=== PATIENT | female | born 1960 | race Caucasian/White ===

== ENCOUNTER 2024-12-06 08:05 | Inpatient (IN) | payer MEDICARE ==
[2024-12-06 08:20] LABS: Glucose,Whole Blood 433 mg/dL (70-110)
--- NOTE | 2024-12-06 08:29 | ED ---
Nausea/Vomiting/Diarrhea HPI - General Chief complaint: Nausea/Vomiting/Diarrhea Stated complaint: nausea, vomiting Time Seen by Provider: 12/06/24 08:13 Source: patient, EMS, RN notes reviewed Mode of arrival: EMS Limitations: no limitations - History of Present Illness Initial comments: With a history of type 2 diabetes mellitus on metformin presenting symptoms department via EMS for complaint of intermittent nausea and vomiting over the past 3 weeks. She denies hematemesis, coffee-ground emesis, melena, hematochezia, dyspnea, chest pain, heart palpitations, dizziness or lightheadedness. States over the past few weeks she is also been experiencing chills, cough, rhinorrhea and congestion. Surgical history of cholecystectomy, hysterectomy, appendectomy, and cyst removal from large colon. Patient states that her blood sugar is normally well-controlled ranging in the 140s maintained with oral metformin. - Related Data Home Medications Medication Instructions Recorded Confirmed Citalopram Hydrobromide [CeleXA] 40 mg PO HS 12/06/24 12/06/24 Gabapentin [Neurontin] 300 mg PO BID 12/06/24 12/06/24 Ketoconazole 2% Cream [Nizoral 2%] 1 applic TOPICAL TID 12/06/24 12/06/24 metFORMIN HCL 1,000 mg PO BID 12/06/24 12/06/24 Allergies Allergy/AdvReac Type Severity Reaction Status Date / Time cephalexin [From Keflex] Allergy Unknown Verified 12/06/24 11:05 Childhood Review of Systems ROS Statement: Those systems with pertinent positive or pertinent negative responses have been documented in the HPI. ROS Other: All systems not noted in ROS Statement are negative. 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 Absent: scleral icterus, conjunctival injection, periorbital swelling Neck exam: Present: normal inspection. Absent: tenderness, meningismus, lymphadenopathy Respiratory exam: Present: normal lung sounds bilaterally. Absent: respiratory distress, wheezes, rales, rhonchi, stridor Cardiovascular Exam: Present: regular rate, normal rhythm, normal heart sounds. Absent: systolic murmur, diastolic murmur, rubs, gallop, clicks GI/Abdominal exam: Present: soft, tenderness (LUQ), normal bowel sounds. Absent: distended, guarding, rebound, rigid Extremities exam: Present: normal inspection, full ROM, normal capillary refill. Absent: tenderness, pedal edema, joint swelling, calf tenderness Back exam: Present: normal inspection Skin exam: Present: warm, dry, pallor. Absent: rash Course Vital Signs 12/06/24 08:07 Temperature 98.7 F Pulse Rate 91 Respiratory 18 Rate Blood Pressure 136/71 O2 Sat by Pulse 97 Oximetry Medical Decision Making - Medical Decision Making Was pt. sent in by a medical professional or institution (, MAN, LEGAL TECHNICIAN, urgent care, hospital, or assisted...) When possible be specific @ -No Did you speak to anyone other than the patient for history (EMS, parent, family, police, friend...)? What history was obtained from this source @ -No Did you review nursing and triage notes (agree or disagree)? Why? @ -I reviewed and agree with nursing and triage notes Were old charts reviewed (outside hosp., previous admission, EMS record, old EKG, old radiological studies, urgent care reports/EKG's, assisted records)? Report findings @ -No old charts were reviewed Differential Diagnosis (chest pain, altered mental status, abdominal pain women, abdominal pain men, vaginal bleeding, weakness, fever, dyspnea, syncope, headache, dizziness, GI bleed, back pain, seizure, CVA, palpatations, mental health, musculoskeletal)? @ -Differential Abdominal Pain Women: Appendicitis, Cholecystitis, diverticulosis, ischemic bowel, pancreatitis, hepatitis, UTI, gastroenteritis, AAA, incarcerated hernia, bowel obstruction, constipation, inflammatory bowel, hepatitis, peptic ulcer disease, splenic infarction, perforated viscus, vulvitis, ovarian torsion, PID, kidney stone, placenta abruption, this is not meant to be an all-inclusive list EKG interpreted by me (3pts min.). @ -None X-rays interpreted by me (1pt min.). @ -None done CT interpreted by me (1pt min.). @ -CT of the abdomen pelvis with IV contrast mild fat stranding and small fluid on the distal body and tail of the pancreas with no ductal dilation noted. U/S interpreted by me (1pt. min.). @ -None done What testing was considered but not performed or refused? (CT, X-rays, U/S, labs)? Why? @ -None What meds were considered but not given or refused? Why? @ -None Did you discuss the management of the patient with other professionals (professionals i.e. , PA, LEGAL TECHNICIAN, lab, RT, psych nurse, social services manager, cylinder inspector and tester, teacher, field artillery officer, manager of case management)? Give summary @ -I spoke with on-call nurse George ramirez with [facility], who has agreed for admission with anemia. recommend transfusion which has been imitated at time of admission. Was smoking cessation discussed for >3mins.? @ -No Was critical care preformed (if so, how long)? @ -No Were there social determinants of health that impacted care today? How? (Homelessness, low income, unemployed, alcoholism, drug addiction, transport ation, low edu. Level, literacy, decrease access to med. care, [facility], rehab)? @ -No Was there de-escalation of care discussed even if they declined (Discuss DNR or withdrawal of care, Hospice)? DNR status @ -No What co-morbidities impacted this encounter? (DM, HTN, Smoking, COPD, CAD, Cancer, CVA, ARF, Chemo, Hep., AIDS, mental health diagnosis, sleep apnea, morbid obesity)? @ -None Was patient admitted / discharged? Hospital course, mention meds given and route, prescriptions, significant lab abnormalities, going to OR and other pertinent info. @ -Admitted. 63-year-old male presenting with intermittent nausea and vomiting over the past 3 weeks. Physical examination for 2-year-old male with left upper quadrant tenderness to palpation with no palpable masses. Vitals are stable. She is patient is provided with IV fluids and antiemetics pending laboratory workup. Labs are remarkable for a critically low hemoglobin of 6.9, hematocrit of 20.6 in addition to 2% blast cells 0.5 lymphocytes. Patient is hyperglycemic with a glucose of 374 and hyponatremia likely secondary to hyperglycemia. Patient is COVID-positive. Acetone negative. Patient is admitted to internal medicine and given red cells with oncology on consult for evaluation of anemia and elevated blast cells. Additionally, on reevaluation of left side abdominal pain CT of the abdomen is ordered which is notable for mild fat stranding and small fluid in the distal body and tail of the pancreas with no ductal dilation noted. Minimal concern for acute pancreatitis this patient pancreatic enzymes are within normal limits. Urinalysis positive for ketones and glucose. Patient is not acidotic. She will be continued on fluids in the admitted to internal medicine. Undiagnosed new problem with uncertain prognosis? @ -No Drug Therapy requiring intensive monitoring for toxicity (Heparin, Nitro, I nsulin, Cardizem)? @ -No Were any procedures done? @ -No Diagnosis/symptom? @ -anemia, hyperglycemia, blast cells, nausea and vomiting Acute, or Chronic, or Acute on Chronic? @ -acute Uncomplicated (without systemic symptoms) or Complicated (systemic symptoms)? @ -complicated Side effects of treatment? @ -No Exacerbation, Progression, or Severe Exacerbation? @ -No Poses a threat to life or bodily function? How? (Chest pain, [place], [place], pneumonia, PE, COPD, DKA, ARF, appy, cholecystitis, CVA, Diverticulitis, Homicidal, Suicidal, threat to staff... and all critical care pts) @ -No - Lab Data Result diagrams: 12/06/24 10:34 12/06/24 08:28 Lab Results 12/06/24 12/06/24 12/06/24 Range/Units 08:18 08:28 08:28 WBC 4.9 (3.8-10.6) k/uL RBC 2.03 L (3.80-5.40) m/uL Hgb 6.9 L* (11.4-16.0) gm/dL Hct 20.6 L (34.0-46.0) % MCV 101.6 H (80.0-100.0) fL MCH 33.9 (25.0-35.0) pg MCHC 33.4 (31.0-37.0) g/dL RDW 23.5 H (11.5-15.5) % Plt Count 115 L (150-450) k/uL MPV 12.3 Neutrophils % (Manual) 76 % Band Neuts % (Manual) 1 % Lymphocytes % (Manual) 12 % Monocytes % (Manual) 8 % Eosinophils % (Manual) 1 % Metamyelocytes % 1 % Myelocytes % 1 % Blast Cells % 2 H* % Neutrophils # (Manual) 3.70 (1.3-7.7) k/uL Lymphocytes # (Manual) 0.59 L (1.0-4.8) k/uL Monocytes # (Manual) 0.39 (0-1.0) k/uL Eosinophils # (Manual) 0.05 (0-0.7) k/uL Metamyelocytes # (Man) 0.05 H (0) k/uL Myelocytes # (Manual) 0.05 H (0) k/uL Blast Cells # (Man) 0.10 H (0) k/uL Nucleated RBCs 0 (0-0) /100 WBC Manual Slide Review Performed Pathologist Review See comment A Hypochromasia Slight Anisocytosis Moderate Microcytosis Slight Macrocytosis Moderate Sodium 132 L (137-145) mmol/L Potassium 4.4 (3.5-5.1) mmol/L Chloride 98 (98-107) mmol/L Carbon Dioxide 21 L (22-30) mmol/L Anion Gap 13 mmol/L BUN 18 H (7-17) mg/dL Creatinine 0.85 (0.52-1.04) mg/dL Est GFR (CKD-EPI)AfAm 84 (>60 ml/min/1.73 sqM) Est GFR (CKD-EPI)NonAf 72 (>60 ml/min/1.73 sqM) Glucose 374 H (74-99) mg/dL POC Glucose (mg/dL) 433 H (70-110) mg/dL POC Glu Mechanic Welder ID Daniel Edwards Calcium 8.4 (8.4-10.2) mg/dL Total Bilirubin 1.3 (0.2-1.3) mg/dL AST 18 (14-36) U/L ALT 13 (4-34) U/L Alkaline Phosphatase 68 (38-126) U/L Total Protein 6.1 L (6.3-8.2) g/dL Albumin 3.4 L (3.5-5.0) g/dL Amylase 70 (30-110) U/L Lipase 46 (23-300) U/L Acetone, Qual Negative (Negative) Influenza Type A (PCR) (Not Detectd) Influenza Type B (PCR) (Not Detectd) RSV (PCR) (Not Detectd) SARS-CoV-2 (PCR) (Not Detectd) Blood Type Blood Type Confirm Blood Type Recheck Bld Type Recheck Status Antibody Screen Crossmatch Spec Expiration Date 12/06/24 12/06/24 12/06/24 Range/Units 08:28 08:31 09:00 WBC (3.8-10.6) k/uL RBC (3.80-5.40) m/uL Hgb (11.4-16.0) gm/dL Hct (34.0-46.0) % MCV (80.0-100.0) fL MCH (25.0-35.0) pg MCHC (31.0-37.0) g/dL RDW (11.5-15.5) % Plt Count (150-450) k/uL MPV Neutrophils % (Manual) % Band Neuts % (Manual) % Lymphocytes % (Manual) % Monocytes % (Manual) % Eosinophils % (Manual) % Metamyelocytes % % Myelocytes % % Blast Cells % % Neutrophils # (Manual) (1.3-7.7) k/uL Lymphocytes # (Manual) (1.0-4.8) k/uL Monocytes # (Manual) (0-1.0) k/uL Eosinophils # (Manual) (0-0.7) k/uL Metamyelocytes # (Man) (0) k/uL Myelocytes # (Manual) (0) k/uL Blast Cells # (Man) (0) k/uL Nucleated RBCs (0-0) /100 WBC Manual Slide Review Pathologist Review Hypochromasia Anisocytosis Microcytosis Macrocytosis Sodium (137-145) mmol/L Potassium (3.5-5.1) mmol/L Chloride (98-107) mmol/L Carbon Dioxide (22-30) mmol/L Anion Gap mmol/L BUN (7-17) mg/dL Creatinine (0.52-1.04) mg/dL Est GFR (CKD-EPI)AfAm (>60 ml/min/1.73 sqM) Est GFR (CKD-EPI)NonAf (>60 ml/min/1.73 sqM) Glucose (74-99) mg/dL POC Glucose (mg/dL) (70-110) mg/dL POC Glu Mechanic Welder ID Calcium (8.4-10.2) mg/dL Total Bilirubin (0.2-1.3) mg/dL AST (14-36) U/L ALT (4-34) U/L Alkaline Phosphatase (38-126) U/L Total Protein (6.3-8.2) g/dL Albumin (3.5-5.0) g/dL Amylase (30-110) U/L Lipase (23-300) U/L Acetone, Qual (Negative) Influenza Type A (PCR) Not Detected (Not Detectd) Influenza Type B (PCR) Not Detected (Not Detectd) RSV (PCR) Not Detected (Not Detectd) SARS-CoV-2 (PCR) Detected A (Not Detectd) Blood Type A Positive Blood Type Confirm A Positive Blood Type Recheck No Previous Record Bld Type Recheck Status CABO Indicated Antibody Screen NEGATIVE Crossmatch See Detail Spec Expiration Date 12/09/20242299 Disposition Clinical Impression: Anemia, COVID-19 Disposition: ADMITTED IP TO THIS [facility] Condition: Stable Decision to Admit Reason: Admit from EC Decision Date: 12/06/24 Decision Time: 09:21
[2024-12-06] MEDS: SODIUM CHLORIDE 0.9% 1,000 ML IV STA (08:34)
[2024-12-06] MEDS: ONDANSETRON 4 MG/2 ML VIAL IVP STA (08:37)
[2024-12-06 08:38] LABS: Anisocytosis Moderate; HCT 20.6 % (34.0-46.0); Hypochromasia Slight; MCH 33.9 pg (25.0-35.0); MCHC 33.4 g/dL (31.0-37.0); MCV 101.6 fL (80.0-100.0); Macrocytosis Moderate; Mean Platelet Volume 12.3; Microcytosis Slight; RBC 2.03 m/uL (3.80-5.40); RDW 23.5 % (11.5-15.5); WBC 4.9 k/uL (3.8-10.6)
[2024-12-06] MEDS: PANTOPRAZOLE 40 MG/10 ML VIAL IVP STA (08:38)
[2024-12-06 08:48] LABS: ALT 13 U/L (4-34); AST 18 U/L (14-36); African American GFR (CKD) 84 (>60 ml/min/1.73 sqM); Albumin 3.4 g/dL (3.5-5.0); Alkaline Phosphatase 68 U/L (38-126); Amylase 70 U/L (30-110); Anion Gap 13 mmol/L; Blood Urea Nitrogen 18 mg/dL (7-17); Calcium 8.4 mg/dL (8.4-10.2); Carbon Dioxide 21 mmol/L (22-30); Chloride 98 mmol/L (98-107); Glucose 374 mg/dL (74-99); Lipase 46 U/L (23-300); Non-African American GFR(CKD) 72 (>60 ml/min/1.73 sqM); Potassium 4.4 mmol/L (3.5-5.1); Sodium 132 mmol/L (137-145); Total Bilirubin 1.3 mg/dL (0.2-1.3); Total Protein 6.1 g/dL (6.3-8.2)
[2024-12-06 08:57] LABS: HGB 6.9 gm/dL (11.4-16.0)
[2024-12-06 09:12] LABS: Influenza A Not Detected (Not Detectd); Influenza B Not Detected (Not Detectd); RSV Not Detected (Not Detectd)
[2024-12-06 09:17] LABS: Platelet Count 115 k/uL (150-450)
[2024-12-06] MEDS ORDERED: NALOXONE 0.4 MG/ML 1 ML VIAL IV PRN (09:22)
[2024-12-06 09:29] LABS: Band Neutrophils % 1 %; Eosinophils # (M) 0.05 k/uL (0-0.7); Lymphocytes # (M) 0.59 k/uL (1.0-4.8); Metamyelocytes # (M) 0.05 k/uL (0); Metamyelocytes % 1 %; Monocytes # (M) 0.39 k/uL (0-1.0); Myelocytes # (M) 0.05 k/uL (0); Myelocytes % 1 %; Neutrophils % (M) 76 %; Nucleated Red Blood Cells 0 /100 WBC (0-0); Total Cells Counted 200
[2024-12-06] MEDS: MORPHINE SULFATE 4 MG/ML SYRINGE IVP STA (09:48)
[2024-12-06 11:00] LABS: Anisocytosis Moderate; Appearance,Urine Clear (Clear); Bilirubin,Urine Negative (Negative); Blood,Urine Negative (Negative); Color,Urine Light Yellow; Glucose,Urine (UA) 4+ (Negative); HCT 21.4 % (34.0-46.0); HGB 7.1 gm/dL (11.4-16.0); Hypochromasia Slight; Leukocyte Esterase,Urine Negative (Negative); MCH 34.3 pg (25.0-35.0); MCHC 33.4 g/dL (31.0-37.0); MCV 102.8 fL (80.0-100.0); Macrocytosis Marked; Mean Platelet Volume 13.4; Microcytosis Slight; Nitrite,Urine Negative (Negative); Platelet Count 141 k/uL (150-450); Protein,Urine Negative (Negative); RBC 2.08 m/uL (3.80-5.40); RDW 23.5 % (11.5-15.5); Specific Gravity,Urine 1.027 (1.001-1.035); Urobilinogen,Urine <2.0 mg/dL (<2.0); WBC 6.7 k/uL (3.8-10.6)
--- NOTE | 2024-12-06 11:37 | CT ---
EXAMINATION TYPE: CT abdomen pelvis w con DATE OF EXAM: 12/06/2024 HISTORY: L abdominal pain, hx cyst of large colon CT DLP: 1962.5mGycm Automated Exposure Control for Dose Reduction was Utilized. CONTRAST: CT scan of the abdomen and pelvis is performed with IV Contrast, patient injected with 100 mL of Isov ue 300. COMPARISON: None. FINDINGS: LUNG BASES: No significant abnormality is appreciated. LIVER/GB: Liver is heterogeneously hypodense consistent with diffuse fatty infiltrative hepatocellula r disease. Small amount of adjacent ascites along the right inferior aspect. Cholecystectomy clips ar e present. PANCREAS: Normal sized pancreas. Perhaps mild fat stranding and small amount of fluid along the dista l body and tail. No well-formed fluid collection is seen. No areas of nonenhancement noted. No ductal dilatation. SPLEEN: No significant abnormality is seen. ADRENALS: Asymmetric low-density thickening left adrenal gland favors benign lipid rich hyperplasia. KIDNEYS: Exophytic rim calcified 1.7 cm cyst in the upper pole left kidney coronal image 63. Some cor tical thinning bilaterally. No hydronephrosis seen bilaterally. Simple 1.9 cm thin-walled cyst anteri adan lower pole right kidney. BOWEL: Diverticulosis in the transverse, left, and sigmoid colon. No CT evidence for acute diverticul itis. No abnormal small or large bowel dilatation.. UTERUS/ADNEXA: Uterus surgically absent or less likely atrophic in appearance. LYMPH NODES: No greater than 1cm abdominal or pelvic lymph nodes are appreciated. OSSEOUS STRUCTURES: Mild disc space narrowing at L5-S1 level. OTHER: Vertical oriented scar in the midline of the anterior abdominal wall with some deeper subcutan eous sutures. Mild calcified plaque in the infrarenal abdominal aorta extends into iliac branch vesse ls. IMPRESSION: Possible noncomplicated acute distal pancreatitis. Correlate clinically and with pancreat ic lab values. Otherwise no acute findings seen to account for patient's symptoms of left-sided pain. [facility], , 12/06/2024 11:34 AM
[2024-12-06 11:50] LABS: Ketones,Urine 2+ (Negative)
--- NOTE | 2024-12-06 14:56 | P.CONS ---
History of Present Illness - Reason for Consult Consult date: 12/06/24 Anemia, possible GI bleed Requesting physician: George Easton - Chief Complaint Weakness, been sick for last 3 weeks - History of Present Illness This is a pleasant 63-year-old female who presented to the emergency department because she has been pretty much laying in bed for the last 3 weeks duration with diarrhea, nausea vomiting, coughing with productive cough and symptoms have been persistent for last 3 weeks duration however states some days she was feeling better. Patient had some blood work done and showed a hemoglobin of 6.9. She denies any black stool, blood in her stool, no hematemesis. States just starting today she had a little abdominal pain. She had a CT of the abdomen pelvis showed possible uncomplicated pancreatitis. Gastroenterology was consulted for anemia possible GI bleed. Patient denies any history of previous GI bleed. Last colonoscopy was 4 to 5 years ago which she states was normal. Last year she had a Cologuard which was normal. Has a history of remote EGD for reported ulcer. Patient's repeat hemoglobin was 7.1, platelet count 141,000 sodium 132 potassium 4.4 BUN 18 creatinine 0.8 total bilirubin 1.3 AST 18 ALT 13 alkaline phosphatase 68 COVID-19 positive Review of Systems REVIEW OF SYSTEMS: CARDIOPULMONARY: No chest pain or shortness of breath. Gastrointestinal: No abdominal pain. No hematemesis, coffee-ground emesis. No rectal bleeding, or melena. Patient does have intermittent nausea and vomiting, vomitus bile. Intermittent ongoing diarrhea over the last 3 weeks. GENITOURINARY: No dysuria or hematuria. MUSCULOSKELETAL: Reports normal range of motion., Joint pain. SKIN: No rashes. No jaundice. ENDOCRINE: No chills, fevers. No excessive weight gain or loss. No polydipsia or polyuria. PSYCHIATRIC: Unremarkable. NEUROLOGY: No change in mental status. Denies dizziness, headache. ENT: Vision unremarkable. CONSTITUTIONAL: No recent weight loss. No fever, chills, night sweats. 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 History of Any Multi-Drug Resistant Organisms: None Reported Past Surgical History: Appendectomy, Cholecystectomy, Hysterectomy, Tonsillectomy Past Psychological History: Anxiety, Depression Smoking Status: Current every day smoker Past Alcohol Use History: None Reported Past Drug Use History: None Reported Medications and Allergies Home Medications Medication Instructions Recorded Confirmed Type Citalopram Hydrobromide [CeleXA] 40 mg PO HS 12/06/24 12/06/24 History Gabapentin [Neurontin] 300 mg PO BID 12/06/24 12/06/24 History Ketoconazole 2% Cream [Nizoral 2%] 1 applic TOPICAL TID 12/06/24 12/06/24 History metFORMIN HCL 1,000 mg PO BID 12/06/24 12/06/24 History Allergies Allergy/AdvReac Type Severity Reaction Status Date / Time cephalexin [From Keflex] Allergy Unknown Verified 12/06/24 11:05 Childhood Physical Exam Vitals: Vital Signs Temp Pulse Resp BP Pulse Ox 12/06/24 08:07 98.7 F 91 18 136/71 97 Intake and Output 12/05/24 12/06/24 12/06/24 22:59 06:59 14:59 Other: Weight 113.398 kg General appearance: The patient is alert, oriented, appears in no acute distress. HET: Head is normocephalic and atraumatic. Conjunctiva pink. Sclera anicteric. Neck: Supple without lymphadenopathy. Trachea midline. Heart: Regular. Lungs: Equal expansion, normal respiratory effort. Abdomen: Soft, mild left lower quadrant tenderness, nondistended. Skin: No rashes. No jaundice. Extremities: Normal skin color and turgor. No pedal edema. Neurological: No focal deficits. Alert and oriented x3. Results CBC & Chem 7: 12/06/24 10:34 12/06/24 08:28 Labs: Abnormal Lab Results - Last 24 Hours (Table) 12/06/24 12/06/24 12/06/24 Range/Units 08:18 08:28 08:28 RBC 2.03 L (3.80-5.40) m/uL Hgb 6.9 L* (11.4-16.0) gm/dL Hct 20.6 L (34.0-46.0) % MCV 101.6 H (80.0-100.0) fL RDW 23.5 H (11.5-15.5) % Plt Count 115 L (150-450) k/uL Blast Cells % 2 H* % Lymphocytes # (Manual) 0.59 L (1.0-4.8) k/uL Metamyelocytes # (Man) 0.05 H (0) k/uL Myelocytes # (Manual) 0.05 H (0) k/uL Blast Cells # (Man) 0.10 H (0) k/uL Pathologist Review See comment A Macrocytosis Sodium 132 L (137-145) mmol/L Carbon Dioxide 21 L (22-30) mmol/L BUN 18 H (7-17) mg/dL Glucose 374 H (74-99) mg/dL POC Glucose (mg/dL) 433 H (70-110) mg/dL Total Protein 6.1 L (6.3-8.2) g/dL Albumin 3.4 L (3.5-5.0) g/dL Urine Glucose (UA) (Negative) Urine Ketones (Negative) SARS-CoV-2 (PCR) (Not Detectd) Crossmatch 12/06/24 12/06/24 12/06/24 Range/Units 08:31 09:00 10:34 RBC (3.80-5.40) m/uL Hgb (11.4-16.0) gm/dL Hct (34.0-46.0) % MCV (80.0-100.0) fL RDW (11.5-15.5) % Plt Count (150-450) k/uL Blast Cells % % Lymphocytes # (Manual) (1.0-4.8) k/uL Metamyelocytes # (Man) (0) k/uL Myelocytes # (Manual) (0) k/uL Blast Cells # (Man) (0) k/uL Pathologist Review Macrocytosis Sodium (137-145) mmol/L Carbon Dioxide (22-30) mmol/L BUN (7-17) mg/dL Glucose (74-99) mg/dL POC Glucose (mg/dL) (70-110) mg/dL Total Protein (6.3-8.2) g/dL Albumin (3.5-5.0) g/dL Urine Glucose (UA) 4+ H (Negative) Urine Ketones 2+ H (Negative) SARS-CoV-2 (PCR) Detected A (Not Detectd) Crossmatch See Detail 12/06/24 Range/Units 10:34 RBC 2.08 L (3.80-5.40) m/uL Hgb 7.1 L (11.4-16.0) gm/dL Hct 21.4 L (34.0-46.0) % MCV 102.8 H (80.0-100.0) fL RDW 23.5 H (11.5-15.5) % Plt Count 141 L (150-450) k/uL Blast Cells % % Lymphocytes # (Manual) (1.0-4.8) k/uL Metamyelocytes # (Man) (0) k/uL Myelocytes # (Manual) (0) k/uL Blast Cells # (Man) (0) k/uL Pathologist Review Macrocytosis Marked A Sodium (137-145) mmol/L Carbon Dioxide (22-30) mmol/L BUN (7-17) mg/dL Glucose (74-99) mg/dL POC Glucose (mg/dL) (70-110) mg/dL Total Protein (6.3-8.2) g/dL Albumin (3.5-5.0) g/dL Urine Glucose (UA) (Negative) Urine Ketones (Negative) SARS-CoV-2 (PCR) (Not Detectd) Crossmatch Comments: CT abdomen pelvis with contrast reports possible noncomplicated acute distal pancreatitis. Correlate clinically and with pancreatic lab values. Otherwise no acute findings seen to account for patient's symptoms of left-sided pain. Assessment and Plan (1) Anemia Narrative/Plan: 63-year-old female presenting with multitude of symptoms including diarrhea, [place] vomiting, cough congestion body aches and weakness over the last few weeks duration who is COVID 19 positive also presents with a macrocytic anemia without any signs or symptoms of GI bleed. Patient also with blast cells noted which may be secondary to COVID-19 infection. Remote history of peptic ulcer and last colonoscopy 4 to 5 years ago which was normal. Will obtain iron studies and ferritin. No plans at this time for any endoscopic evaluation. Appreciate input from hematology. Current Visit: Yes Status: Acute Code(s): D64.9 - ANEMIA, UNSPECIFIED SNOMED Code(s): 705327393 (2) Thrombocytopenia Current Visit: Yes Status: Acute Code(s): D69.6 - THROMBOCYTOPENIA, UNSPECIFIED SNOMED Code(s): 455729804 (3) COVID-19 Current Visit: Yes Status: Acute Code(s): U07.1 - COVID-19 SNOMED Code(s): 624046249 Plan: 1. Continue symptomatic and supportive care 2. Daily CBC 3. Iron studies, ferritin ordered 4. Protonix 40 mg daily for GI prophylaxis 5. Appreciate recommendations from hematology 6. No plans at this time for any endoscopic evaluation 7. Further recommendations forthcoming based on clinical course Thank you for this consultation, we will continue to follow. Dr. Stanley Cook I agree with the dictator's note, documented as a scribe by Belkis Martinez.
[2024-12-06] MEDS: ACETAMINOPHEN TAB 325 MG TAB PO PRN (15:26)
[2024-12-06 15:27] LABS: Protein, Total 6.1 g/dL (6.2-8.2)
[2024-12-06] MEDS ORDERED: PROCHLORPERAZINE INJ 10 MG/2 ML VIAL IVP PRN (15:34)
[2024-12-06 15:44] LABS: LDH 140 U/L (120-246)
[2024-12-06] MEDS: MORPHINE SULFATE 4 MG/ML SYRINGE IV PRN (15:53)
[2024-12-06] MEDS: SODIUM CHLORIDE 0.9% 1,000 ML IV SCH (17:08)
[2024-12-06] MEDS ORDERED: DEXTROSE 50% SYRINGE 50 ML IVP PRN ×2 (17:38)
--- NOTE | 2024-12-06 17:42 | P.HPIM ---
History of Present Illness H&P Date: 12/06/24 History of Presenting Illness: Patient is a very pleasant 63-year-old female with a past medical history of [id number] diabetes mellitus, diabetic neuropathy in bilateral lower extremities, and anxiety with depression. Presented to the emergency department with a chief complaint of weakness, nausea, vomiting, and left upper quadrant pain. Reports intermittent nausea and vomiting ongoing over the past 3 weeks development of mild left upper quadrant pain beginning yesterday. She reports mostly bile emesis but also reports dark almost brown-colored emesis as well. She denies noting any bright red blood in her vomit and denies having any hematochezia or melena. Patient denies having any fevers, chills, headache, lightheadedness, dizziness, chest pain, palpitations, shortness of breath or experiencing any difficulties with or changes in her urinary function. Patient denies history of previous GI bleed and denies home NSAID use or being on any blood thinners. Upon arrival to our facility, patient underwent evaluation in the emergency department. Vital signs upon arrival show blood pressure 136/71, heart rate 91, respiratory rate 18, temp 98.7 F, and SpO2 of 97% on room air. Labs completed and reviewed. CBC showing macrocytic anemia with hemoglobin of 6.9 and MCV of 101.6 along with thrombocytopenia with platelet count of 115. Differential revealed 2% blast cells, metamyelocytes, myelocytes, and pathologist report stated mild left shift with immature circulating granulocytes may be indicated if of reactive and inflammatory process as patient also subsequently tested positive for COVID-19. BMP revealed sodium 132, bicarb of 21, and anion gap of 13 with glucose of 374. Liver profile showing hypoalbuminemia with albumin of 3.4. Lipase 46 and amylase of 70. Vitamin B12 555, folate 6.60, and TSH of 1.170. CT abdomen and pelvis with contrast showing possible noncomplicated acute distal pancreatitis. Patient admitted under our services with consult to gastroenterology and hematology for evaluation. Review of systems: Pertinent positives and negatives as discussed in HPI, a complete review of systems was performed and all other systems are negative. Physical exam: Vital signs reviewed and stable. General: Nontoxic, no distress and appears stated age. Obese. Derm: Skin warm and dry, pallor. Head: Atraumatic, normocephalic and symmetric. Eyes: EOM's intact, no lid lag, and anicteric sclera Mouth: no lip lesions, mucus membranes moist Cardiovascular: regular rate and rhythm with normal S1S2, no murmur, positive posterior tibial pulses bilaterally, and cap refill < 2 seconds. Lungs: Respirations even, regular, and unlabored on room air. Lungs CTA bilaterally, no rhonchi, no rales, no wheezing, and no accessory muscle usage. Abdominal: soft, mild tenderness upon palpation left upper quadrant, no guardi ng, no appreciable organomegaly Ext: ROM intact. No gross muscle atrophy, scant lower extremity edema, no contractures Neuro: Speech clear, face symmetrical and CN II-XII grossly intact with no noted focal neuro deficits Psych: Alert and oriented to person, place, time, and situation. Appropriate and pleasant affect. Assessment and Plan of Care: Bicytopenia with abnormal differential including findings of blast cells, metamyelocytes, and myelocytes Intractable nausea and vomiting, CT concerning for possible acute pancreatitis however pancreatic enzymes normal findings COVID-19 infection -Consult placed to gastroenterology, appreciate recommendations -Consult placed to hematology, appreciate recommendations. -Iron profile to be obtained. -Continue gentle IV fluid hydration with 0.9% normal saline at 75 cc/h. -Protonix 40 mg IVP daily -Compazine 10 mg IVP every 6 hours as needed for nausea. -Morphine 4 mg IVP every 4 hours as needed for severe pain. -Transfuse 1 unit PRBCs and continued close monitoring of hemoglobin levels with repeat CBC every 6 hours. -Droplet plus contact precautions Den-dveplbc-urysbdxay diabetes mellitus with hyperglycemia -Hold metformin and placed patient on glycemic protocol with NovoLog sliding scale. Anxiety with depression -Daily medication regimen with Celexa 40 mg nightly. Diabetic peripheral neuropathy -Continue gabapentin 300 mg twice daily. Data and imaging reviewed: -As stated above in HPI CODE STATUS: Full code DVT prophylaxis: SCDs Anticipated discharge date: Pending clinical course Anticipated discharge place: Home Patient was seen independently by Nurse Practitioner. This document was prepared using [employer] dictation software. Please allow for errors in sas sql developer while rare they do occur. George Easton NP rendered care for this patient independently, reviewed the findings and plan as documented in the note above and agree with plan. I did not physically speak with or examine the patient on this date. 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 History of Any Multi-Drug Resistant Organisms: None Reported Past Surgical History: Appendectomy, Cholecystectomy, Hysterectomy, Tonsillectomy Past Psychological History: Anxiety, Depression Smoking Status: Current every day smoker Past Alcohol Use History: None Reported Past Drug Use History: None Reported Medications and Allergies Home Medications Medication Instructions Recorded Confirmed Type Citalopram Hydrobromide [CeleXA] 40 mg PO HS 12/06/24 12/06/24 History Gabapentin [Neurontin] 300 mg PO BID 12/06/24 12/06/24 History Ketoconazole 2% Cream [Nizoral 2%] 1 applic TOPICAL TID 12/06/24 12/06/24 History metFORMIN HCL 1,000 mg PO BID 12/06/24 12/06/24 History Allergies Allergy/AdvReac Type Severity Reaction Status Date / Time cephalexin [From Keflex] Allergy Unknown Verified 12/06/24 11:05 Childhood Physical Exam Vitals: Vital Signs Temp Pulse Resp BP Pulse Ox 12/06/24 08:07 98.7 F 91 18 136/71 97 Intake and Output 12/05/24 12/06/24 12/06/24 22:59 06:59 14:59 Other: Weight 113.398 kg Results CBC & Chem 7: 12/06/24 10:34 12/06/24 08:28 Labs: Abnormal Lab Results - Last 24 Hours (Table) 12/06/24 12/06/24 12/06/24 Range/Units 08:18 08:28 08:28 RBC 2.03 L (3.80-5.40) m/uL Hgb 6.9 L* (11.4-16.0) gm/dL Hct 20.6 L (34.0-46.0) % MCV 101.6 H (80.0-100.0) fL RDW 23.5 H (11.5-15.5) % Plt Count 115 L (150-450) k/uL Blast Cells % 2 H* % Lymphocytes # (Manual) 0.59 L (1.0-4.8) k/uL Metamyelocytes # (Man) 0.05 H (0) k/uL Myelocytes # (Manual) 0.05 H (0) k/uL Blast Cells # (Man) 0.10 H (0) k/uL Sodium 132 L (137-145) mmol/L Carbon Dioxide 21 L (22-30) mmol/L BUN 18 H (7-17) mg/dL Glucose 374 H (74-99) mg/dL POC Glucose (mg/dL) 433 H (70-110) mg/dL Total Protein 6.1 L (6.3-8.2) g/dL Albumin 3.4 L (3.5-5.0) g/dL SARS-CoV-2 (PCR) (Not Detectd) 12/06/24 Range/Units 08:31 RBC (3.80-5.40) m/uL Hgb (11.4-16.0) gm/dL Hct (34.0-46.0) % MCV (80.0-100.0) fL RDW (11.5-15.5) % Plt Count (150-450) k/uL Blast Cells % % Lymphocytes # (Manual) (1.0-4.8) k/uL Metamyelocytes # (Man) (0) k/uL Myelocytes # (Manual) (0) k/uL Blast Cells # (Man) (0) k/uL Sodium (137-145) mmol/L Carbon Dioxide (22-30) mmol/L BUN (7-17) mg/dL Glucose (74-99) mg/dL POC Glucose (mg/dL) (70-110) mg/dL Total Protein (6.3-8.2) g/dL Albumin (3.5-5.0) g/dL SARS-CoV-2 (PCR) Detected A (Not Detectd)
--- NOTE | 2024-12-06 18:32 | P.CONS ---
History of Present Illness - Reason for Consult Consult date: 12/06/24 anemia Requesting physician: George Easton - Chief Complaint N,V,D - History of Present Illness Mrs. Mane is a 63-year-old female patient currently admitted to the hospital en she presented with nausea, vomiting, diarrhea for several days. She has tested positive for COVID. Routine lab work did show a hemoglobin of 6.9, she is status post 1 unit of packed red blood cells. 2% blasts were also noted, which is why we are consulted. Patient denies any history of anemia, no blood disorders, she denies any recent bleeding. She had a hysterectomy at the age of 22 for "bad uterus". Patient had an EGD more than 20 years ago, she had a colonoscopy about 5 years ago, prior she has had Cologuard, denies pathology. Has occasional bleeding hemorrhoids but, nothing severe. She has a history of a melon sized cyst that was removed from the bowel, she is not sure how much of her bowel was removed. She is current on her mammograms, no recent [employer] follow- up. Patient denies having any respiratory symptoms at this time, no fevers, chills, abdominal pain or cramping, acute changes in bowel or bladder habits. CT AP with contrast impression possible noncomplicated acute distal pancreatitis. No other acute findings for patient's left-sided abdominal pain WBC 4.9, hemoglobin 6.9 hematocrit 20.6, normal indices with an increased RDW, platelets slightly low at 115,000. 2% blasts metamyelocytes and myelocytes seen on manual. Pathologist review of the slide reporting rare circulating blast cells present. Patient has received a unit of blood. 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 History of Any Multi-Drug Resistant Organisms: None Reported Past Surgical History: Appendectomy, Cholecystectomy, Hysterectomy, Tonsillectomy Past Psychological History: Anxiety, Depression Smoking Status: Current every day smoker Past Alcohol Use History: None Reported Past Drug Use History: None Reported Medications and Allergies Home Medications Medication Instructions Recorded Confirmed Type Citalopram Hydrobromide [CeleXA] 40 mg PO HS 12/06/24 12/06/24 History Gabapentin [Neurontin] 300 mg PO BID 12/06/24 12/06/24 History Ketoconazole 2% Cream [Nizoral 2%] 1 applic TOPICAL TID 12/06/24 12/06/24 History metFORMIN HCL 1,000 mg PO BID 12/06/24 12/06/24 History Allergies Allergy/AdvReac Type Severity Reaction Status Date / Time cephalexin [From Keflex] Allergy Unknown Verified 12/06/24 11:05 Childhood Physical Exam Vitals: Vital Signs Temp Pulse Resp BP Pulse Ox 12/06/24 16:51 98 18 162/82 98 12/06/24 15:57 99.2 F 12/06/24 15:31 98 18 157/81 98 12/06/24 14:14 98.3 F 95 16 152/82 12/06/24 13:54 98.5 F 99 18 150/72 98 12/06/24 13:45 98.7 F 93 18 137/79 99 12/06/24 08:07 98.7 F 91 18 136/71 97 Intake and Output 12/06/24 12/06/24 12/06/24 06:59 14:59 22:59 Intake Total 0 310 Balance 0 310 Intake: Blood Product 0 310 Rc As-1 Unit 0 310 [id number] Other: Weight 113.398 kg Morbidly obese but overall well-looking female sitting up in bed, no acute distress, alert and oriented x 4. Patient is COVID positive, physical goal exam other than observation deferred - Constitutional General appearance: cooperative, no acute distress - EENT Eyes: anicteric sclerae, EOMI ENT: hearing grossly normal - Respiratory Respirations unlabored at rest - Neurologic Neurologic: CNII-XII intact (Grossly) - Psychiatric Psychiatric: A&O x's 3, appropriate affect, intact judgment & insight Results CBC & Chem 7: 12/06/24 10:34 12/06/24 08:28 Labs: Abnormal Lab Results - Last 24 Hours (Table) 12/06/24 12/06/24 12/06/24 Range/Units 08:18 08:28 08:28 RBC 2.03 L (3.80-5.40) m/uL Hgb 6.9 L* (11.4-16.0) gm/dL Hct 20.6 L (34.0-46.0) % MCV 101.6 H (80.0-100.0) fL RDW 23.5 H (11.5-15.5) % Plt Count 115 L (150-450) k/uL Blast Cells % 2 H* % Lymphocytes # (Manual) 0.59 L (1.0-4.8) k/uL Metamyelocytes # (Man) 0.05 H (0) k/uL Myelocytes # (Manual) 0.05 H (0) k/uL Blast Cells # (Man) 0.10 H (0) k/uL Pathologist Review See comment A Macrocytosis Sodium 132 L (137-145) mmol/L Carbon Dioxide 21 L (22-30) mmol/L BUN 18 H (7-17) mg/dL Glucose 374 H (74-99) mg/dL POC Glucose (mg/dL) 433 H (70-110) mg/dL Total Protein 6.1 L (6.3-8.2) g/dL Total Protein (PEP) (6.2-8.2) g/dL Albumin 3.4 L (3.5-5.0) g/dL Urine Glucose (UA) (Negative) Urine Ketones (Negative) SARS-CoV-2 (PCR) (Not Detectd) Crossmatch 12/06/24 12/06/24 12/06/24 Range/Units 08:31 09:00 10:34 RBC (3.80-5.40) m/uL Hgb (11.4-16.0) gm/dL Hct (34.0-46.0) % MCV (80.0-100.0) fL RDW (11.5-15.5) % Plt Count (150-450) k/uL Blast Cells % % Lymphocytes # (Manual) (1.0-4.8) k/uL Metamyelocytes # (Man) (0) k/uL Myelocytes # (Manual) (0) k/uL Blast Cells # (Man) (0) k/uL Pathologist Review Macrocytosis Sodium (137-145) mmol/L Carbon Dioxide (22-30) mmol/L BUN (7-17) mg/dL Glucose (74-99) mg/dL POC Glucose (mg/dL) (70-110) mg/dL Total Protein (6.3-8.2) g/dL Total Protein (PEP) (6.2-8.2) g/dL Albumin (3.5-5.0) g/dL Urine Glucose (UA) 4+ H (Negative) Urine Ketones 2+ H (Negative) SARS-CoV-2 (PCR) Detected A (Not Detectd) Crossmatch See Detail 12/06/24 12/06/24 Range/Units 10:34 12:31 RBC 2.08 L (3.80-5.40) m/uL Hgb 7.1 L (11.4-16.0) gm/dL Hct 21.4 L (34.0-46.0) % MCV 102.8 H (80.0-100.0) fL RDW 23.5 H (11.5-15.5) % Plt Count 141 L (150-450) k/uL Blast Cells % % Lymphocytes # (Manual) (1.0-4.8) k/uL Metamyelocytes # (Man) (0) k/uL Myelocytes # (Manual) (0) k/uL Blast Cells # (Man) (0) k/uL Pathologist Review Macrocytosis Marked A Sodium (137-145) mmol/L Carbon Dioxide (22-30) mmol/L BUN (7-17) mg/dL Glucose (74-99) mg/dL POC Glucose (mg/dL) (70-110) mg/dL Total Protein (6.3-8.2) g/dL Total Protein (PEP) 6.1 L (6.2-8.2) g/dL Albumin (3.5-5.0) g/dL Urine Glucose (UA) (Negative) Urine Ketones (Negative) SARS-CoV-2 (PCR) (Not Detectd) Crossmatch CT scan - abdomen: report reviewed CT scan - pelvis: report reviewed Assessment and Plan (1) COVID-19 Current Visit: Yes Status: Acute Priority: High Code(s): U07.1 - COVID-19 SNOMED Code(s): 334441698 (2) Anemia Current Visit: Yes Status: Acute Priority: High Code(s): D64.9 - ANEMIA, UNSPECIFIED SNOMED Code(s): 424601990 (3) Thrombocytopenia Current Visit: Yes Status: Acute Priority: High Code(s): D69.6 - THROMBOCYTOPENIA, UNSPECIFIED SNOMED Code(s): 141483579 Plan: COVID-19 -Patient is being treated for the same, thankfully no severe respiratory symptoms. -Defer treatment of the same to the attending team. Anemia and thrombocytopenia -Unable to trend back labs. Patient is a good historian though, and she denies any known history of low blood counts -Laboratory investigations initiated, including paraproteinemia workup, iron deficiency, nutritional labs. Pending results. Further recommendations to follow. Based on findings, further workup may be ordered. -Transfuse for hemoglobin less than 7 or if patient is symptomatic. Transfuse for platelet count less than 10,000 or if patient is symptomatic. -GI consulted Further recommendations to follow.
[2024-12-06 21:26] LABS: Glucose,Whole Blood 319 mg/dL (70-110)
[2024-12-06] MEDS: INSULIN ASPART (NovoLOG) 100 UNIT/ML VIAL SQ SCH (21:46)
[2024-12-06] MEDS: CITALOPRAM HYDROBROMIDE 20 MG TAB PO SCH (21:46)
[2024-12-06] MEDS: GABAPENTIN 300 MG CAP PO SCH (21:46)
[2024-12-06] MEDS: ONDANSETRON 4 MG/2 ML VIAL IVP PRN (21:47)
[2024-12-07 06:26] LABS: Anisocytosis Moderate; Basophils % (A) 0 %; Eosinophils # (A) 0.1 k/uL (0-0.7); Eosinophils % (A) 1 %; HCT 23.1 % (34.0-46.0); HGB 7.7 gm/dL (11.4-16.0); Hypochromasia Slight; Lymphocytes # (A) 1.1 k/uL (1.0-4.8); Lymphocytes % (A) 18 %; MCH 32.8 pg (25.0-35.0); MCHC 33.2 g/dL (31.0-37.0); MCV 98.6 fL (80.0-100.0); Macrocytosis Moderate; Mean Platelet Volume 12.6; Microcytosis Slight; Monocytes # (A) 0.4 k/uL (0-1.0); Monocytes % (A) 7 %; Neutrophils # (A) 4.5 k/uL (1.3-7.7); Neutrophils % (A) 72 %; Platelet Count 114 k/uL (150-450); RBC 2.34 m/uL (3.80-5.40); RDW 22.9 % (11.5-15.5); WBC 6.3 k/uL (3.8-10.6)
[2024-12-07 06:31] LABS: Glucose,Whole Blood 305 mg/dL (70-110)
[2024-12-07 06:42] LABS: ALT 14 U/L (4-34); AST 19 U/L (14-36); African American GFR (CKD) >90 (>60 ml/min/1.73 sqM); Albumin 3.5 g/dL (3.5-5.0); Alkaline Phosphatase 63 U/L (38-126); Anion Gap 8 mmol/L; Blood Urea Nitrogen 17 mg/dL (7-17); Calcium 8.7 mg/dL (8.4-10.2); Carbon Dioxide 24 mmol/L (22-30); Chloride 100 mmol/L (98-107); Glucose 284 mg/dL (74-99); Magnesium 1.8 mg/dL (1.6-2.3); Non-African American GFR(CKD) 83 (>60 ml/min/1.73 sqM); Potassium 4.8 mmol/L (3.5-5.1); Sodium 132 mmol/L (137-145); Total Bilirubin 1.5 mg/dL (0.2-1.3)
[2024-12-07] MEDS: PANTOPRAZOLE 40 MG/10 ML VIAL IVP SCH (09:10)
[2024-12-07] MEDS ORDERED: ALBUTEROL HFA INHALER INHALATION PRN (10:28)
--- NOTE | 2024-12-07 10:44 | XR ---
EXAMINATION TYPE: XR chest 1V DATE OF EXAM: 12/07/2024 10:38 AM COMPARISON: None. CLINICAL INDICATION: Female, 63 years old with history of COVID. wheezing, TECHNIQUE: Single frontal view of the chest is obtained. FINDINGS: There is no focal air space opacity, pleural effusion, or pneumothorax seen. The cardiac silhouette size is upper limits of normal normal limits. The osseous structures are intact. IMPRESSION: No acute pulmonary infiltrate. [facility], , 12/07/2024 10:42 AM
[2024-12-07 11:11] LABS: Free Kappa Lt Chain Qnt, Serum 2.45 mg/dL (0.33-1.94); Free Lambda Lt Chain Qnt, Seru 1.77 mg/dL (0.57-2.63)
[2024-12-07 11:45] LABS: Glucose,Whole Blood 295 mg/dL (70-110)
[2024-12-07 12:42] VITALS: BMI 39.1
--- NOTE | 2024-12-07 14:04 | P.PN ---
Subjective Progress Note Date: 12/07/24 Principal diagnosis: Anemia This is a pleasant 63-year-old female who presented to the emergency department because she has been pretty much laying in bed for the last 3 weeks duration with diarrhea, nausea vomiting, coughing with productive cough and symptoms have been persistent for last 3 weeks duration however states some days she was feeling better. Patient had some blood work done and showed a hemoglobin of 6.9. She denies any black stool, blood in her stool, no hematemesis. States just starting today she had a little abdominal pain. She had a CT of the abdomen pelvis showed possible uncomplicated pancreatitis. Gastroenterology was consulted for anemia possible GI bleed. Patient denies any history of previous GI bleed. Last colonoscopy was 4 to 5 years ago which she states was normal. Last year she had a Cologuard which was normal. Has a history of remote EGD for reported ulcer. Patient's repeat hemoglobin was 7.1, platelet count 141,000 sodium 132 potassium 4.4 BUN 18 creatinine 0.8 total bilirubin 1.3 AST 18 ALT 13 alkaline phosphatase 68 COVID-19 positive 12/07/2024 Patient seen and examined today as a follow-up. She states overall she is not feeling well. She is having shortness of breath, wheezing and increased cough. States she had a little vomiting but it was mostly mucus there is no coffee- ground emesis and no hematemesis. She denies any dark stool. Denies abdominal pain. Today's hemoglobin is 7.7 platelet count 114,000 iron studies are still pending as well as ferritin. Objective - Vital Signs Vital signs: Vital Signs Temp 98.0 F 12/07/24 08:00 Pulse 86 12/07/24 08:00 Resp 17 12/07/24 08:00 BP 144/83 12/07/24 08:00 Pulse Ox 95 12/07/24 08:00 FiO2 Intake & Output 12/06/24 12/07/24 12/07/24 18:59 06:59 18:59 Intake Total 310 118 Output Total 50 Balance 310 -50 118 Weight 113.398 kg 113.398 kg 113.398 kg Intake: Oral 118 Blood Product 310 Rc As-1 Unit 310 [id number] Output: Emesis 50 Other: Voiding Method Toilet # Voids 2 - Exam General appearance: The patient is alert, oriented, appears in no acute distress. HET: Head is normocephalic and atraumatic. Conjunctiva pink. Sclera anicteric. Neck: Supple without lymphadenopathy. Trachea midline. Heart: Regular. Lungs: Equal expansion, bilateral wheezing, increased respiratory effort. Abdomen: Soft, nontender, nondistended. Skin: No rashes. No jaundice. Extremities: Normal skin color and turgor. No pedal edema. Neurological: No focal deficits. Alert and oriented x3. - Labs CBC & Chem 7: 12/07/24 06:00 12/07/24 06:00 Labs: Abnormal Lab Results - Last 24 Hours (Table) 12/06/24 12/06/24 12/06/24 Range/Units 09:00 12:31 21:25 RBC (3.80-5.40) m/uL Hgb (11.4-16.0) gm/dL Hct (34.0-46.0) % RDW (11.5-15.5) % Plt Count (150-450) k/uL Sodium (137-145) mmol/L Glucose (74-99) mg/dL POC Glucose (mg/dL) 319 H (70-110) mg/dL Hemoglobin A1c (<=6.0) % Total Bilirubin (0.2-1.3) mg/dL Total Protein (6.3-8.2) g/dL Total Protein (PEP) 6.1 L (6.2-8.2) g/dL Free [place] LC, Quant 2.45 H (0.33-1.94) mg/dL Crossmatch See Detail 12/07/24 12/07/24 12/07/24 Range/Units 06:00 06:00 06:00 RBC 2.34 L (3.80-5.40) m/uL Hgb 7.7 L (11.4-16.0) gm/dL Hct 23.1 L (34.0-46.0) % RDW 22.9 H (11.5-15.5) % Plt Count 114 L (150-450) k/uL Sodium 132 L (137-145) mmol/L Glucose 284 H (74-99) mg/dL POC Glucose (mg/dL) (70-110) mg/dL Hemoglobin A1c 9.1 H (<=6.0) % Total Bilirubin 1.5 H (0.2-1.3) mg/dL Total Protein 6.0 L (6.3-8.2) g/dL Total Protein (PEP) (6.2-8.2) g/dL Free [place] LC, Quant (0.33-1.94) mg/dL Crossmatch 12/07/24 12/07/24 Range/Units 06:30 11:44 RBC (3.80-5.40) m/uL Hgb (11.4-16.0) gm/dL Hct (34.0-46.0) % RDW (11.5-15.5) % Plt Count (150-450) k/uL Sodium (137-145) mmol/L Glucose (74-99) mg/dL POC Glucose (mg/dL) 305 H 295 H (70-110) mg/dL Hemoglobin A1c (<=6.0) % Total Bilirubin (0.2-1.3) mg/dL Total Protein (6.3-8.2) g/dL Total Protein (PEP) (6.2-8.2) g/dL Free [place] LC, Quant (0.33-1.94) mg/dL Crossmatch Assessment and Plan (1) Anemia Narrative/Plan: 63-year-old female presenting with multitude of symptoms including diarrhea, nausea vomiting, cough congestion body aches and weakness over the last few week s duration who is COVID 19 positive also presents with a macrocytic anemia without any signs or symptoms of GI bleed. Patient also with blast cells noted which may be secondary to COVID-19 infection. Remote history of peptic ulcer and last colonoscopy 4 to 5 years ago which was normal. Will obtain iron studies and ferritin. No plans at this time for any endoscopic evaluation. Appreciate input from hematology. Current Visit: Yes Status: Acute Priority: High Code(s): D64.9 - ANEMIA, UNSPECIFIED SNOMED Code(s): 978901065 (2) Thrombocytopenia Current Visit: Yes Status: Acute Priority: High Code(s): D69.6 - THROMBOCYTOPENIA, UNSPECIFIED SNOMED Code(s): 177566175 (3) COVID-19 Current Visit: Yes Status: Acute Priority: High Code(s): U07.1 - COVID-19 SNOMED Code(s): 606882200 Plan: 1. Continue symptomatic and supportive care 2. Daily CBC 3. Iron studies, ferritin ordered still pending, apparently were not sent out 4. Protonix 40 mg daily for GI prophylaxis 5. Appreciate recommendations from hematology 6. No plans at this time for any endoscopic evaluation 7. Further recommendations forthcoming based on clinical course Thank you for this consultation, we will continue to follow. Dr. Stanley Cook I agree with the dictator's note, documented as a scribe by Belkis Martinez.
--- NOTE | 2024-12-07 14:41 | P.PN ---
Subjective Progress Note Date: 12/07/24 Hospital Course: Patient is a very pleasant 63-year-old female with a past medical history of skm-zyvyahw-inniwafan diabetes mellitus, diabetic neuropathy in bilateral lower extremities, and anxiety with depression. Presented to the emergency department with a chief complaint of weakness, nausea, vomiting, and left upper quadrant pain. Reports intermittent nausea and vomiting ongoing over the past 3 weeks development of mild left upper quadrant pain beginning yesterday. She reports mostly bile emesis but also reports dark almost brown-colored emesis as well. She denies noting any bright red blood in her vomit and denies having any hematochezia or melena. Patient denies having any fevers, chills, headache, lightheadedness, dizziness, chest pain, palpitations, shortness of breath or experiencing any difficulties with or changes in her urinary function. Patient denies history of previous GI bleed and denies home NSAID use or being on any blood thinners. Upon arrival to our facility, patient underwent evaluation in the emergency department. Vital signs upon arrival show blood pressure 136/71, heart rate 91, respiratory rate 18, temp 98.7 F, and SpO2 of 97% on room air. Labs completed and reviewed. CBC showing macrocytic anemia with hemoglobin of 6.9 and MCV of 101.6 along with thrombocytopenia with platelet count of 115. Differential revealed 2% blast cells, metamyelocytes, myelocytes, and pathologist report stated mild left shift with immature circulating granulocytes may be indicated if of reactive and inflammatory process as patient also subsequently tested positive for COVID-19. BMP revealed sodium 132, bicarb of 21, and anion gap of 13 with glucose of 374. Liver profile showing hypoalbuminemia with albumin of 3.4. Lipase 46 and amylase of 70. Vitamin B12 555, folate 6.60, and TSH of 1.170. CT abdomen and pelvis with contrast showing possible noncomplicated acute distal pancreatitis. Patient admitted under our s ervices with consult to gastroenterology and hematology for evaluation. Physical exam: Patient was seen and fully evaluated at bedside this morning. She reports continued nausea and vomiting/dry heaving, but reports vomiting mostly mucus today and denies any further episodes of dark brown-colored emesis this morning. Patient reports overall feeling "awful". Patient reports feeling weak and short of breath. She reports pain in left upper quadrant has improved this morning and currently rates 3 out of 10 at this time. Vital signs reviewed and stable. General: Nontoxic, no distress and appears stated age. Obese. Derm: Skin warm and dry, pallor. Head: Atraumatic, normocephalic and symmetric. Eyes: EOM's intact, no lid lag, and anicteric sclera Mouth: no lip lesions, mucus membranes moist Cardiovascular: regular rate and rhythm with normal S1S2, no murmur, positive posterior tibial pulses bilaterally, and cap refill < 2 seconds. Lungs: Respirations even, regular, and unlabored on room air. Lungs diminished with soft expiratory wheezes. No rhonchi, rales, or crackles noted. No accessory muscle usage. Abdominal: soft, nontender upon palpation, no guarding, no appreciable organomegaly Ext: ROM intact. No gross muscle atrophy, scant lower extremity edema, no contractures Neuro: Speech clear, face symmetrical and CN II-XII grossly intact with no noted focal neuro deficits Psych: Alert and oriented to person, place, time, and situation. Appropriate and pleasant affect. Assessment and Plan of Care: Bicytopenia with abnormal differential including findings of blast cells, metamyelocytes, and myelocytes Intractable nausea and vomiting, CT concerning for possible acute pancreatitis h owever pancreatic enzymes normal findings COVID-19 infection -Secondary to reports of new onset shortness of breath and wheezing, order placed for repeat chest x-ray. 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 -Consult placed to hematology, appreciate recommendations. -Iron profile pending results -Continue gentle IV fluid hydration with 0.9% normal saline at 75 cc/h and clear liquid diet pending further recommendations from gastroenterology. -Protonix 40 mg IVP daily -Compazine 10 mg IVP every 6 hours as needed for nausea. -Morphine 4 mg IVP every 4 hours as needed for severe pain. -Status posttransfusion of 1 unit PRBCs, hemoglobin stable at 7.7. Continue to monitor hemoglobin closely with repeat a.m. labs. -Maintain droplet plus contact precautions Sbd-lyptefg-tqxmfptew diabetes mellitus with hyperglycemia -Hold metformin and placed patient on glycemic protocol with NovoLog sliding scale. -Acetone was negative. Anxiety with depression -Continue Daily medication regimen with Celexa 40 mg nightly. Diabetic peripheral neuropathy -Continue gabapentin 300 mg twice daily. Data and imaging reviewed: -Morning labs reviewed. CBC showing continued but stable bicytopenia with hemoglobin of 7.7 and platelet count of 114. BMP showing pseudohyponatremia with sodium of 132 and glucose of 284. Magnesium normal findings at 1.8. Liver profile showing hyperbilirubinemia with total bili of 1.5 otherwise normal findings. -Vital signs reviewed. Blood pressure 144/83, heart rate 86, respiratory rate 17, temp 98.0 F, and SpO2 of 95% on room air. CODE STATUS: Full code DVT prophylaxis: SCDs Anticipated discharge date: Pending clinical course Anticipated discharge place: Home Patient was seen independently by Nurse Practitioner. This document was prepared using [employer] dictation software. Please allow for errors in grill cook while rare they do occur. George Easton NP rendered care for this patient independently, reviewed the findings and plan as documented in the note above and agree with plan. I did not physically speak with or examine the patient on this date. Objective - Vital Signs Vital signs: Vital Signs Temp 97.7 F 12/07/24 02:00 Pulse 87 12/07/24 02:00 Resp 18 12/07/24 02:00 BP 115/60 12/07/24 02:00 Pulse Ox 95 12/07/24 02:00 FiO2 Intake & Output 12/06/24 12/07/24 12/07/24 18:59 06:59 18:59 Intake Total 310 Output Total 50 Balance 310 -50 Weight 113.398 kg 113.398 kg Intake: Blood Product 310 Rc As-1 Unit 310 [id number] Output: Emesis 50 Other: Voiding Method Toilet # Voids 2 - Labs CBC & Chem 7: 12/07/24 06:00 12/07/24 06:00 Labs: Abnormal Lab Results - Last 24 Hours (Table) 12/06/24 12/06/24 12/06/24 Range/Units 08:18 08:28 08:28 RBC 2.03 L (3.80-5.40) m/uL Hgb 6.9 L* (11.4-16.0) gm/dL Hct 20.6 L (34.0-46.0) % MCV 101.6 H (80.0-100.0) fL RDW 23.5 H (11.5-15.5) % Plt Count 115 L (150-450) k/uL Blast Cells % 2 H* % Lymphocytes # (Manual) 0.59 L (1.0-4.8) k/uL Metamyelocytes # (Man) 0.05 H (0) k/uL Myelocytes # (Manual) 0.05 H (0) k/uL Blast Cells # (Man) 0.10 H (0) k/uL Pathologist Review See comment A Macrocytosis Sodium 132 L (137-145) mmol/L Carbon Dioxide 21 L (22-30) mmol/L BUN 18 H (7-17) mg/dL Glucose 374 H (74-99) mg/dL POC Glucose (mg/dL) 433 H (70-110) mg/dL Total Bilirubin (0.2-1.3) mg/dL Total Protein 6.1 L (6.3-8.2) g/dL Total Protein (PEP) (6.2-8.2) g/dL Albumin 3.4 L (3.5-5.0) g/dL Urine Glucose (UA) (Negative) Urine Ketones (Negative) SARS-CoV-2 (PCR) (Not Detectd) Crossmatch 12/06/24 12/06/24 12/06/24 Range/Units 08:31 09:00 10:34 RBC (3.80-5.40) m/uL Hgb (11.4-16.0) gm/dL Hct (34.0-46.0) % MCV (80.0-100.0) fL RDW (11.5-15.5) % Plt Count (150-450) k/uL Blast Cells % % Lymphocytes # (Manual) (1.0-4.8) k/uL Metamyelocytes # (Man) (0) k/uL Myelocytes # (Manual) (0) k/uL Blast Cells # (Man) (0) k/uL Pathologist Review Macrocytosis Sodium (137-145) mmol/L Carbon Dioxide (22-30) mmol/L BUN (7-17) mg/dL Glucose (74-99) mg/dL POC Glucose (mg/dL) (70-110) mg/dL Total Bilirubin (0.2-1.3) mg/dL Total Protein (6.3-8.2) g/dL Total Protein (PEP) (6.2-8.2) g/dL Albumin (3.5-5.0) g/dL Urine Glucose (UA) 4+ H (Negative) Urine Ketones 2+ H (Negative) SARS-CoV-2 (PCR) Detected A (Not Detectd) Crossmatch See Detail 12/06/24 12/06/24 12/06/24 Range/Units 10:34 12:31 21:25 RBC 2.08 L (3.80-5.40) m/uL Hgb 7.1 L (11.4-16.0) gm/dL Hct 21.4 L (34.0-46.0) % MCV 102.8 H (80.0-100.0) fL RDW 23.5 H (11.5-15.5) % Plt Count 141 L (150-450) k/uL Blast Cells % % Lymphocytes # (Manual) (1.0-4.8) k/uL Metamyelocytes # (Man) (0) k/uL Myelocytes # (Manual) (0) k/uL Blast Cells # (Man) (0) k/uL Pathologist Review Macrocytosis Marked A Sodium (137-145) mmol/L Carbon Dioxide (22-30) mmol/L BUN (7-17) mg/dL Glucose (74-99) mg/dL POC Glucose (mg/dL) 319 H (70-110) mg/dL Total Bilirubin (0.2-1.3) mg/dL Total Protein (6.3-8.2) g/dL Total Protein (PEP) 6.1 L (6.2-8.2) g/dL Albumin (3.5-5.0) g/dL Urine Glucose (UA) (Negative) Urine Ketones (Negative) SARS-CoV-2 (PCR) (Not Detectd) Crossmatch 12/07/24 12/07/24 12/07/24 Range/Units 06:00 06:00 06:30 RBC 2.34 L (3.80-5.40) m/uL Hgb 7.7 L (11.4-16.0) gm/dL Hct 23.1 L (34.0-46.0) % MCV (80.0-100.0) fL RDW 22.9 H (11.5-15.5) % Plt Count 114 L (150-450) k/uL Blast Cells % % Lymphocytes # (Manual) (1.0-4.8) k/uL Metamyelocytes # (Man) (0) k/uL Myelocytes # (Manual) (0) k/uL Blast Cells # (Man) (0) k/uL Pathologist Review Macrocytosis Sodium 132 L (137-145) mmol/L Carbon Dioxide (22-30) mmol/L BUN (7-17) mg/dL Glucose 284 H (74-99) mg/dL POC Glucose (mg/dL) 305 H (70-110) mg/dL Total Bilirubin 1.5 H (0.2-1.3) mg/dL Total Protein 6.0 L (6.3-8.2) g/dL Total Protein (PEP) (6.2-8.2) g/dL Albumin (3.5-5.0) g/dL Urine Glucose (UA) (Negative) Urine Ketones (Negative) SARS-CoV-2 (PCR) (Not Detectd) Crossmatch
[2024-12-07] MEDS: ALBUTEROL HFA INHALER INHALATION SCH (16:03)
--- NOTE | 2024-12-07 16:31 | P.PN ---
Subjective Progress Note Date: 12/07/24 Principal diagnosis: Anemia, low plt, 2% blasts In follow-up today patient denies fevers, chills, sore throat, tolerating small amt of a clear liquid diet, sm amt emesis early this AM, none since, cough, small amount of clear sputum, denies chest pain, shortness of breath with activity. She has no new pain to report Objective - Vital Signs Vital signs: Vital Signs Temp 97.9 F 12/07/24 14:00 Pulse 91 12/07/24 14:00 Resp 17 12/07/24 14:00 BP 160/62 12/07/24 14:00 Pulse Ox 95 12/07/24 14:00 FiO2 Intake & Output 12/06/24 12/07/24 12/07/24 18:59 06:59 18:59 Intake Total 310 118 Output Total 50 Balance 310 -50 118 Weight 113.398 kg 113.398 kg 113.398 kg Intake: Oral 118 Blood Product 310 Rc As-1 Unit 310 [id number] Output: Emesis 50 Other: Voiding Method Toilet # Voids 2 - Exam Respirations unlabored at rest. - Constitutional General appearance: Present: cooperative, no acute distress, obese - EENT Eyes: Present: anicteric sclerae, EOMI ENT: Present: hearing grossly normal - Labs CBC & Chem 7: 12/07/24 06:00 12/07/24 06:00 Labs: Abnormal Lab Results - Last 24 Hours (Table) 12/06/24 12/06/24 12/06/24 Range/Units 09:00 12:31 21:25 RBC (3.80-5.40) m/uL Hgb (11.4-16.0) gm/dL Hct (34.0-46.0) % RDW (11.5-15.5) % Plt Count (150-450) k/uL Sodium (137-145) mmol/L Glucose (74-99) mg/dL POC Glucose (mg/dL) 319 H (70-110) mg/dL Hemoglobin A1c (<=6.0) % Total Bilirubin (0.2-1.3) mg/dL Total Protein (6.3-8.2) g/dL Free [place] LC, Quant 2.45 H (0.33-1.94) mg/dL Crossmatch See Detail 12/07/24 12/07/24 12/07/24 Range/Units 06:00 06:00 06:00 RBC 2.34 L (3.80-5.40) m/uL Hgb 7.7 L (11.4-16.0) gm/dL Hct 23.1 L (34.0-46.0) % RDW 22.9 H (11.5-15.5) % Plt Count 114 L (150-450) k/uL Sodium 132 L (137-145) mmol/L Glucose 284 H (74-99) mg/dL POC Glucose (mg/dL) (70-110) mg/dL Hemoglobin A1c 9.1 H (<=6.0) % Total Bilirubin 1.5 H (0.2-1.3) mg/dL Total Protein 6.0 L (6.3-8.2) g/dL Free [place] LC, Quant (0.33-1.94) mg/dL Crossmatch 12/07/24 12/07/24 Range/Units 06:30 11:44 RBC (3.80-5.40) m/uL Hgb (11.4-16.0) gm/dL Hct (34.0-46.0) % RDW (11.5-15.5) % Plt Count (150-450) k/uL Sodium (137-145) mmol/L Glucose (74-99) mg/dL POC Glucose (mg/dL) 305 H 295 H (70-110) mg/dL Hemoglobin A1c (<=6.0) % Total Bilirubin (0.2-1.3) mg/dL Total Protein (6.3-8.2) g/dL Free [place] LC, Quant (0.33-1.94) mg/dL Crossmatch Assessment and Plan (1) COVID-19 Current Visit: Yes Status: Acute Priority: High Code(s): U07.1 - COVID-19 SNOMED Code(s): 835713737 (2) Anemia Current Visit: Yes Status: Acute Priority: High Code(s): D64.9 - ANEMIA, UNSPECIFIED SNOMED Code(s): 197111147 (3) Thrombocytopenia Current Visit: Yes Status: Acute Priority: High Code(s): D69.6 - THROMBOCYTOPENIA, UNSPECIFIED SNOMED Code(s): 773865644 Plan: COVID-19 -Patient is being treated for the same, thankfully no severe respiratory symp toms. -Defer treatment of the same to the attending team. Anemia and thrombocytopenia -Unable to trend back labs. Patient is a good historian though, and she denies any known history of low blood counts -Laboratory investigations initiated. Hemolysis workup negative, B12 and folate levels are within normal limits, immunoglobulin levels are within normal limits. Additional studies still pending. Patient updated.Further recommendations will follow. Based on findings, further workup may be ordered. -Transfuse for hemoglobin less than 7 or if patient is symptomatic. Transfuse for platelet count less than 10,000 or if patient is symptomatic. -GI consulted
[2024-12-07 16:43] LABS: Glucose,Whole Blood 246 mg/dL (70-110)
[2024-12-07 20:09] LABS: % Iron Saturation 34.15 (12.00-45.00)
[2024-12-07 20:26] LABS: Glucose,Whole Blood 256 mg/dL (70-110)
[2024-12-08 03:36] LABS: Anisocytosis Moderate; HCT 20.5 % (34.0-46.0); Hypochromasia Slight; MCH 33.6 pg (25.0-35.0); MCHC 34.2 g/dL (31.0-37.0); MCV 98.2 fL (80.0-100.0); Macrocytosis Moderate; Mean Platelet Volume 13.1; Microcytosis Slight; Platelet Count 103 k/uL (150-450); RBC 2.09 m/uL (3.80-5.40); RDW 23.1 % (11.5-15.5); WBC 6.8 k/uL (3.8-10.6)
[2024-12-08 04:07] LABS: ALT 13 U/L (4-34); AST 16 U/L (14-36); African American GFR (CKD) 89 (>60 ml/min/1.73 sqM); Albumin 3.3 g/dL (3.5-5.0); Alkaline Phosphatase 60 U/L (38-126); Anion Gap 5 mmol/L; Blood Urea Nitrogen 16 mg/dL (7-17); Calcium 8.4 mg/dL (8.4-10.2); Carbon Dioxide 26 mmol/L (22-30); Chloride 100 mmol/L (98-107); Glucose 219 mg/dL (74-99); Magnesium 1.7 mg/dL (1.6-2.3); Non-African American GFR(CKD) 77 (>60 ml/min/1.73 sqM); Potassium 4.3 mmol/L (3.5-5.1); Sodium 131 mmol/L (137-145); Total Bilirubin 1.8 mg/dL (0.2-1.3); Total Protein 5.8 g/dL (6.3-8.2)
[2024-12-08 06:34] LABS: Glucose,Whole Blood 286 mg/dL (70-110)
[2024-12-08 09:05] VITALS: BP 126/75; PULSE 89; RESP 16; TEMP 98.7
[2024-12-08] MEDS: MAGNESIUM SULFATE-D5W PMX 1 GM in DEXTROSE/WATER 1 100ML.BAG IVPB SCH (09:30)
[2024-12-08 11:56] LABS: Glucose,Whole Blood 318 mg/dL (70-110)
--- NOTE | 2024-12-08 13:01 | P.PN ---
Subjective Progress Note Date: 12/08/24 Principal diagnosis: Anemia This is a pleasant 63-year-old female who presented to the emergency department because she has been pretty much laying in bed for the last 3 weeks duration with diarrhea, nausea vomiting, coughing with productive cough and symptoms have been persistent for last 3 weeks duration however states some days she was feeling better. Patient had some blood work done and showed a hemoglobin of 6.9. She denies any black stool, blood in her stool, no hematemesis. States just starting today she had a little abdominal pain. She had a CT of the abdomen pelvis showed possible uncomplicated pancreatitis. Gastroenterology was consulted for anemia possible GI bleed. Patient denies any history of previous GI bleed. Last colonoscopy was 4 to 5 years ago which she states was normal. Last year she had a Cologuard which was normal. Has a history of remote EGD for reported ulcer. Patient's repeat hemoglobin was 7.1, platelet count 141,000 sodium 132 potassium 4.4 BUN 18 creatinine 0.8 total bilirubin 1.3 AST 18 ALT 13 alkaline phosphatase 68 COVID-19 positive 12/07/2024 Patient seen and examined today as a follow-up. She states overall she is not feeling well. She is having shortness of breath, wheezing and increased cough. States she had a little vomiting but it was mostly mucus there is no coffee- ground emesis and no hematemesis. She denies any dark stool. Denies abdominal pain. Today's hemoglobin is 7.7 platelet count 114,000 iron studies are still pending as well as ferritin. 12/08/2024 Patient seen and examined today as a follow-up. Patient is not requiring any oxygen and her breathing appears to be much better than yesterday. She denies any nausea or vomiting. States she is coughing up some clear sputum. Has not had a bowel movement since she has been here. Iron studies have been completed and ferritin which are normal not indicating iron deficiency anemia. Hemoglobin today is 7.0 hematocrit 20.5 platelet count 103,000. Patient states she wants to go home and she is leaving today. Objective - Vital Signs Vital signs: Vital Signs Temp 98.7 F 12/08/24 08:20 Pulse 89 12/08/24 08:20 Resp 16 12/08/24 08:20 BP 126/75 12/08/24 08:20 Pulse Ox 92 L 12/08/24 08:20 FiO2 Intake & Output 12/07/24 12/08/24 12/08/24 18:59 06:59 18:59 Intake Total 1818 Balance 1818 Weight 113.398 kg Intake: Intake, IV Titration 900 Amount Sodium Chloride 0.9% 1, 900 000 ml @ 75 mls/hr IV . [id number] SATNAM Rx#:[id number] Oral 918 Other: Voiding Method Toilet Diaper # Voids 2 3 # Bowel Movements 1 - Exam General appearance: The patient is alert, oriented, appears in no acute distress. HET: Head is normocephalic and atraumatic. Conjunctiva pink. Sclera anicteric. Neck: Supple without lymphadenopathy. Trachea midline. Heart: Regular. Lungs: Equal expansion, normal respiratory effort. Abdomen: Soft, nontender, nondistended. Skin: No rashes. No jaundice. Extremities: Normal skin color and turgor. No pedal edema. Neurological: No focal deficits. Alert and oriented x3. - Labs CBC & Chem 7: 12/08/24 03:23 12/08/24 03:23 Labs: Abnormal Lab Results - Last 24 Hours (Table) 12/06/24 12/06/24 12/07/24 Range/Units 08:28 12:31 11:44 RBC (3.80-5.40) m/uL Hgb (11.4-16.0) gm/dL Hct (34.0-46.0) % RDW (11.5-15.5) % Plt Count (150-450) k/uL Sodium (137-145) mmol/L Glucose (74-99) mg/dL POC Glucose (mg/dL) 295 H (70-110) mg/dL Ferritin 568.0 H (10.0-291.0) ng/mL Total Bilirubin (0.2-1.3) mg/dL Total Protein (6.3-8.2) g/dL Albumin (3.5-5.0) g/dL Free [place] LC, Quant 2.45 H (0.33-1.94) mg/dL 12/07/24 12/07/24 12/08/24 Range/Units 16:41 20:24 03:23 RBC 2.09 L (3.80-5.40) m/uL Hgb 7.0 L (11.4-16.0) gm/dL Hct 20.5 L (34.0-46.0) % RDW 23.1 H (11.5-15.5) % Plt Count 103 L (150-450) k/uL Sodium (137-145) mmol/L Glucose (74-99) mg/dL POC Glucose (mg/dL) 246 H 256 H (70-110) mg/dL Ferritin (10.0-291.0) ng/mL Total Bilirubin (0.2-1.3) mg/dL Total Protein (6.3-8.2) g/dL Albumin (3.5-5.0) g/dL Free [place] LC, Quant (0.33-1.94) mg/dL 12/08/24 12/08/24 Range/Units 03:23 06:33 RBC (3.80-5.40) m/uL Hgb (11.4-16.0) gm/dL Hct (34.0-46.0) % RDW (11.5-15.5) % Plt Count (150-450) k/uL Sodium 131 L (137-145) mmol/L Glucose 219 H (74-99) mg/dL POC Glucose (mg/dL) 286 H (70-110) mg/dL Ferritin (10.0-291.0) ng/mL Total Bilirubin 1.8 H (0.2-1.3) mg/dL Total Protein 5.8 L (6.3-8.2) g/dL Albumin 3.3 L (3.5-5.0) g/dL Free [place] LC, Quant (0.33-1.94) mg/dL Assessment and Plan (1) Anemia Narrative/Plan: 63-year-old female presenting with multitude of symptoms including diarrhea, nausea vomiting, cough congestion body aches and weakness over the last few weeks duration who is COVID 19 positive also presents with a macrocytic anemia without any signs or symptoms of GI bleed. Patient also with blast cells noted which may be secondary to COVID-19 infection. Remote history of peptic ulcer and last colonoscopy 4 to 5 years ago which was normal. Will obtain iron studies and ferritin. No plans at this time for any endoscopic evaluation. Appreciate input from hematology. Iron profile and ferritin not consistent with iron deficiency anemia. No signs of gross signs of GI bleed, anemia likely not secondary to acute blood loss. Continue with recommendations from hematology. Current Visit: Yes Status: Acute Priority: High Code(s): D64.9 - ANEMIA, UNSPECIFIED SNOMED Code(s): 843718161 (2) Thrombocytopenia Current Visit: Yes Status: Acute Priority: High Code(s): D69.6 - THROMBOCYTOPENIA, UNSPECIFIED SNOMED Code(s): 986658770 (3) COVID-19 Current Visit: Yes Status: Acute Priority: High Code(s): U07.1 - COVID-19 SNOMED Code(s): 847745666 Plan: 1. Continue symptomatic and supportive care 2. Diet as tolerated 3. Iron studies reviewed, not consistent with iron deficiency anemia 4. Continue with recommendations from hematology 5. No plans at this time for any endoscopic evaluation Thank you for this consultation, patient is cleared from gastroenterology for discharge. She can follow-up as an outpatient if anemia continues. Dr. Stanley Cook I agree with the dictator's note, documented as a scribe by Belkis Martinez.
--- NOTE | 2024-12-08 13:46 | P.DS ---
Providers Date of admission: 12/06/24 09:45 Expected date of discharge: 12/08/24 Attending physician: Gume Hancock Consults: 12/06/24 09:50 Consult Physician Routine Consulting Provider: Leslye Cook Consult Reason/Comments: suspect GI bleed Do you want consulting provider notified?: Yes 12/06/24 09:54 Consult Physician Routine Consulting Provider: Silvia Dos Santos Consult Reason/Comments: anemia, blast cells present r/o blood disorder such as leukemia Do you want consulting provider notified?: Yes Primary care physician: Physician Nonstaff Hospital Course: Discharge Diagnosis: Bicytopenia with abnormal differential including findings of blast cells, metamyelocytes, and myelocytes. Intractable nausea and vomiting, possibly secondary to COVID but CT concerning for mild acute pancreatitis, however pancreatic enzymes normal findings. COVID-19 infection Efu-uhmhecb-qgnaxhzsj diabetes mellitus with hyperglycemia Anxiety with depression Diabetic peripheral neuropathy Hospital Course: Patient is a very pleasant 63-year-old female with a past medical history of oay-tonbmwn-qzmtvnahr diabetes mellitus, diabetic neuropathy in bilateral lower extremities, and anxiety with depression. Presented to the emergency department with a chief complaint of weakness, nausea, vomiting, and left upper quadrant pain. Reports intermittent nausea and vomiting ongoing over the past 3 weeks development of mild left upper quadrant pain beginning yesterday. She reports mostly bile emesis but also reports dark almost brown-colored emesis as well. She denies noting any bright red blood in her vomit and denies having any hematochezia or melena. Patient denies having any fevers, chills, headache, lightheadedness, dizziness, chest pain, palpitations, shortness of breath or experiencing any difficulties with or changes in her urinary function. Patient denies history of previous GI bleed and denies home NSAID use or being on any blood thinners. Upon arrival to our facility, patient underwent evaluation in the emergency department. Vital signs upon arrival show blood pressure 136/71, heart rate 91, respiratory rate 18, temp 98.7 F, and SpO2 of 97% on room air. Labs completed and reviewed. CBC showing macrocytic anemia with hemoglobin of 6.9 and MCV of 101.6 along with thrombocytopenia with platelet count of 115. Differential revealed 2% blast cells, metamyelocytes, myelocytes, and pathologist report stated mild left shift with immature circulating granulocytes may be indicated if of reactive and inflammatory process as patient also subsequently tested positive for COVID-19. BMP revealed sodium 132, bicarb of 21, and anion gap of 13 with glucose of 374. Liver profile showing hypoalbuminemia with albumin of 3.4. Lipase 46 and amylase of 70. Vitamin B12 555, folate 6.60, and TSH of 1.170. CT abdomen and pelvis with contrast showing possible noncomplicated acute distal pancreatitis. Patient admitted under our services with consult to gastroenterology and hematology for evaluation. Patient received 1 unit of PRBCs. Hemoglobin at time of discharge 7.0. She was evaluated by gastroenterology stating iron studies reviewed not consistent with iron deficiency anemia and no plans for endoscopic evaluation at this time recommending patient follow-up outpatient if anemia continues. Hematology evaluated hemolytic workup negative additional labs pending. Patient reports feeling much better and denies having any complaints and demanding discharge at this time. Discussed with litigation associate and director multiple sclerosis center clearing patient from their perspective. Patient being discharged per her request, strongly encourage patient to follow-up with repeat outpatient CBC and to return to the emergency department immediately if any symptoms of weakness, dizziness, lightheadedness, chest pain, shortness of breath, or noted hematemesis, melena, or hematochezia develop. Physical exam: Vital signs reviewed and stable. General: Nontoxic, no distress and appears stated age. Obese. Derm: Skin warm and dry, pallor. Head: Atraumatic, normocephalic and symmetric. Eyes: EOM's intact, no lid lag, and anicteric sclera Mouth: no lip lesions, mucus membranes moist Cardiovascular: regular rate and rhythm with normal S1S2, no murmur, positive posterior tibial pulses bilaterally, and cap refill < 2 seconds. Lungs: Respirations even, regular, and unlabored on room air. Lungs diminished with soft expiratory wheezes. No rhonchi, rales, or crackles noted. No accessory muscle usage. Abdominal: soft, nontender upon palpation, no guarding, no appreciable organomegaly Ext: ROM intact. No gross muscle atrophy, scant lower extremity edema, no contractures Neuro: Speech clear, face symmetrical and CN II-XII grossly intact with no noted focal neuro deficits Psych: Alert and oriented to person, place, time, and situation. Appropriate and pleasant affect. A total of 37 minutes of time were spent preparing this complex discharge summary. Pt was discharged on 12/08/2024 at 1:16 PM. Patient was seen independently by Nurse Practitioner. This document was prepared using needmade dictation software. Please allow for errors in opener tender while rare they do occur. George Easton NP rendered care for this patient independently, reviewed the findings and plan as documented in the note above. I did not physically speak with or examine the patient on this date. Patient Condition at Discharge: Stable Plan - Discharge Summary New Discharge Prescriptions: New Pantoprazole [Protonix] 40 mg PO DAILY 30 Days #30 tab Continue Gabapentin [Neurontin] 300 mg PO BID metFORMIN HCL 1,000 mg PO BID Ketoconazole 2% Cream [Nizoral 2%] 1 applic TOPICAL TID Citalopram Hydrobromide [CeleXA] 40 mg PO HS Discharge Medication List Citalopram Hydrobromide [CeleXA] 40 mg PO HS 12/06/24 [History] Gabapentin [Neurontin] 300 mg PO BID 12/06/24 [History] Ketoconazole 2% Cream [Nizoral 2%] 1 applic TOPICAL TID 12/06/24 [History] metFORMIN HCL 1,000 mg PO BID 12/06/24 [History] Pantoprazole [Protonix] 40 mg PO DAILY 30 Days #30 tab 12/08/24 [Rx] Follow up Appointment(s)/Referral(s): Silvia Dos Santos MD [STAFF PHYSICIAN] - 1 Week Leslye Cook MD [STAFF PHYSICIAN] - As Needed Nonstaff,Physician [Primary Care Provider] - 1-2 days Ambulatory/Diagnostic Orders: Complete Blood Count w/diff [LAB.AMB] Time Frame: 3 Days, Location: None Selected Activity/Diet/Wound Care/Special Instructions: Activity: As tolerated. Take breaks as needed. Diet: Heart healthy and carb consistent diet. Avoid salts, or foods with hidden salts such as canned or boxed foods and frozen dinners. Extra salt makes your heart work harder and traps the fluid in your body for longer. Special Instructions: Take all of your medications as directed and remember to keep all of your doctor's appointments and follow-up as needed. You are being discharged per your request. Strongly recommend following up as directed and having a repeat CBC drawn in 3 days to follow-up on your abnormal hemoglobin levels. Avoid taking any NSAIDs until further instructed at follow-up appointment with director multiple sclerosis center. Thank you for allowing us to participate in your care, it was truly a pleasure having you for our patient!!! . Discharge Disposition: HOME SELF-CARE
[2024-12-08 16:19] LABS: Albumin 3.34 g/dL (3.80-4.90); Gamma Globulin 0.93 g/dL (0.70-1.50)
--- NOTE | 2024-12-08 23:12 | P.PN ---
Subjective Progress Note Date: 12/08/24 Principal diagnosis: Anemia, low plt, 2% blasts In follow-up today patient feels well, anxious to go home. She has no new pain to report, denies bleeding Objective - Vital Signs Vital signs: Vital Signs Temp 98.7 F 12/08/24 08:20 Pulse 89 12/08/24 08:20 Resp 16 12/08/24 08:20 BP 126/75 12/08/24 08:20 Pulse Ox 92 L 12/08/24 08:20 FiO2 Intake & Output 12/07/24 12/08/24 12/08/24 18:59 06:59 18:59 Intake Total 1818 Balance 1818 Weight 113.398 kg Intake: Intake, IV Titration 900 Amount Sodium Chloride 0.9% 1, 900 000 ml @ 75 mls/hr IV . [id number] [facility] Rx#:[id number] Oral 918 Other: Voiding Method Toilet Toilet Diaper Diaper # Voids 2 3 # Bowel Movements 1 - Constitutional General appearance: Present: cooperative, no acute distress, obese - EENT Eyes: Present: anicteric sclerae, EOMI ENT: Present: hearing grossly normal - Respiratory Details: Respirations unlabored at rest - Integumentary Integumentary: Present: normal - Neurologic Neurologic: Present: CNII-XII intact - Musculoskeletal Musculoskeletal: Present: strength equal bilaterally - Psychiatric Psychiatric: Present: A&O x's 3, appropriate affect, intact judgment & insight - Labs CBC & Chem 7: 12/08/24 03:23 12/08/24 03:23 Labs: Abnormal Lab Results - Last 24 Hours (Table) 12/06/24 12/07/24 12/07/24 Range/Units 08:28 16:41 20:24 RBC (3.80-5.40) m/uL Hgb (11.4-16.0) gm/dL Hct (34.0-46.0) % RDW (11.5-15.5) % Plt Count (150-450) k/uL Sodium (137-145) mmol/L Glucose (74-99) mg/dL POC Glucose (mg/dL) 246 H 256 H (70-110) mg/dL Ferritin 568.0 H (10.0-291.0) ng/mL Total Bilirubin (0.2-1.3) mg/dL Total Protein (6.3-8.2) g/dL Albumin (3.5-5.0) g/dL 12/08/24 12/08/24 12/08/24 Range/Units 03:23 03:23 06:33 RBC 2.09 L (3.80-5.40) m/uL Hgb 7.0 L (11.4-16.0) gm/dL Hct 20.5 L (34.0-46.0) % RDW 23.1 H (11.5-15.5) % Plt Count 103 L (150-450) k/uL Sodium 131 L (137-145) mmol/L Glucose 219 H (74-99) mg/dL POC Glucose (mg/dL) 286 H (70-110) mg/dL Ferritin (10.0-291.0) ng/mL Total Bilirubin 1.8 H (0.2-1.3) mg/dL Total Protein 5.8 L (6.3-8.2) g/dL Albumin 3.3 L (3.5-5.0) g/dL 12/08/24 Range/Units 11:53 RBC (3.80-5.40) m/uL Hgb (11.4-16.0) gm/dL Hct (34.0-46.0) % RDW (11.5-15.5) % Plt Count (150-450) k/uL Sodium (137-145) mmol/L Glucose (74-99) mg/dL POC Glucose (mg/dL) 318 H (70-110) mg/dL Ferritin (10.0-291.0) ng/mL Total Bilirubin (0.2-1.3) mg/dL Total Protein (6.3-8.2) g/dL Albumin (3.5-5.0) g/dL Assessment and Plan (1) COVID-19 Status: Acute Priority: High Code(s): U07.1 - COVID-19 SNOMED Code(s): 664727179 (2) Anemia Status: Acute Priority: High Code(s): D64.9 - ANEMIA, UNSPECIFIED SNOMED Code(s): 722025224 (3) Thrombocytopenia Status: Acute Priority: High Code(s): D69.6 - THROMBOCYTOPENIA, UNSPECIFIED SNOMED Code(s): 405626922 Plan: COVID-19 -Patient is being treated for the same, thankfully no severe respiratory symptoms. -Defer treatment of the same to the attending team. Anemia and thrombocytopenia -Unable to trend back labs. Patient is a good historian though, and she denies any known history of low blood counts -Laboratory investigations initiated. Hemolysis workup negative, B12 and folate levels are within normal limits, immunoglobulin levels are within normal limits, labs are not suggestive of iron deficiency. -Recommendation is for patient to follow-up with Hematology. Monitor blood counts, additional laboratory studies. More aggressive workup after no underlying causes found and if counts do not normalize spontaneously. She was agreeable to the same. Patient will be contacted for a follow-up appointment [facility] hematology
== END 2024-12-08 13:52 | disposition home or self-care (01) | DRG 177 ==
LOC: EC 08:05 → 4SSUR 09:45 → 1SOBS 19:16
PROVIDERS: ADMIT Student in an Organized Health Care Education/Training Program; ATTEND Student in an Organized Health Care Education/Training Program
DX: U07.1 COVID-19 (principal); K85.90 Acute pancreatitis without necrosis or infection, unspecified; D69.6 Thrombocytopenia, unspecified; E87.1 Hypo-osmolality and hyponatremia; E88.09 Other disorders of plasma-protein metabolism, not elsewhere classified; E11.42 Type 2 diabetes mellitus with diabetic polyneuropathy; E66.01 Morbid (severe) obesity due to excess calories; E11.65 Type 2 diabetes mellitus with hyperglycemia; D53.9 Nutritional anemia, unspecified; F32.A Depression, unspecified; F17.210 Nicotine dependence, cigarettes, uncomplicated; F41.9 Anxiety disorder, unspecified; Z68.39 Body mass index [BMI] 39.0-39.9, adult; Z79.84 Long term (current) use of oral hypoglycemic drugs; Z79.899 Other long term (current) drug therapy; Z87.11 Personal history of peptic ulcer disease
CPT/HCPCS: 36415; 36430; 71045; 74177; 80053; 81003; 82009; 82150; 82607; 82728; 82746; 82784; 83010; 83036; 83540; 83550; 83615; 83690; 83735; 83883; 83921; 84165; 84443; 85025; 85027; 86334; 86850; 86900; 86901; 86920; 87636; 94640; 96361; 96374; 96375; 96376; 99285